=== PATIENT | female | born 1940 | race Caucasian/White ===

== ENCOUNTER 2016-09-28 07:33 | Day surgery (SDC) | payer MEDICARE, BC ==
[~2016-09-28 07:33] MED LIST: ACETAMINOPHEN 325 MG TABLET PO PRN; ACETYLCHOLINE CHLORIDE 20 DROP KIT IO PRN; BUPIVACAINE HCL/PF 30 ML VIAL IJ PRN; CYCLOPENTOLATE HCL 20 DROP BTL RIGHTEYE PRN; DEXTROSE 5%-0.5 NORMAL SALINE 1,000 ML IV PRN; EPINEPHrine 1 MG/ML AMPUL IO PRN; HYALURONATE SODIUM 0.4 ML DISP.SYRIN IO PRN; HYALURONATE SODIUM 0.85 ML DISP.SYRIN IO PRN; LIDOCAINE HCL/PF 200 MG/5 ML AMPUL TP PRN; LIDOCAINE HCL/PF 5 ML VIAL IO PRN; NORMAL SALINE 3 ML BOX IV PRN; TETRACAINE HCL 150 DROP BTL OP PRN
[2016-09-28] MEDS: TROPICAMIDE 150 DROP BTL RIGHTEYE PRN ×3 (07:54→08:20)
[2016-09-28] MEDS: PHENYLEPHRINE HCL 50 DROP BTL RIGHTEYE PRN ×3 (07:54→08:20)
[2016-09-28] MEDS ORDERED: DEXTROSE 5%-0.5 NORMAL SALINE 1,000 ML IV ONE (08:16)
[2016-09-28 10:15] VITALS: BP 141/94
== END 2016-09-28 07:34 | disposition home or self-care (01) ==
LOC: AMB 07:33
PROVIDERS: ATTEND Ophthalmology
PROC: 08RJ3JZ Replacement of Right Lens with Synthetic Substitute, Percutaneous Approach (ICD-10-PCS; principal; 2016-09-28 08:40)
DX: H26.9 Unspecified cataract (principal); I10 Essential (primary) hypertension; Z68.28 Body mass index [BMI] 28.0-28.9, adult

== ENCOUNTER 2016-10-12 07:40 | Day surgery (SDC) | payer MEDICARE, BC ==
[~2016-10-12 07:40] MED LIST changes: +CYCLOPENTOLATE HCL 20 DROP BTL LEFTEYE PRN; -CYCLOPENTOLATE HCL 20 DROP BTL RIGHTEYE PRN
[2016-10-12] MEDS: PHENYLEPHRINE HCL 50 DROP BTL LEFTEYE PRN ×3 (08:00→08:34)
[2016-10-12] MEDS: TROPICAMIDE 150 DROP BTL LEFTEYE PRN ×3 (08:00→08:34)
[2016-10-12 10:48] VITALS: BP 141/64
== END 2016-10-12 07:41 | disposition home or self-care (01) ==
LOC: AMB 07:40
PROVIDERS: ATTEND Ophthalmology
PROC: 08RK3JZ Replacement of Left Lens with Synthetic Substitute, Percutaneous Approach (ICD-10-PCS; principal; 2016-10-12 08:40)
DX: H26.9 Unspecified cataract (principal); I10 Essential (primary) hypertension; Z68.28 Body mass index [BMI] 28.0-28.9, adult